=== PATIENT | female | born 1930 | race Two or more races ===

== ENCOUNTER 2018-11-20 14:20 | Outpatient (CLI) | payer MEDICARE, MEDICAID ==
[~2018-11-20] VITALS: Ht 160 cm; Wt 45.4 kg
[2018-11-20 14:35] VITALS: BP 145/92
[2018-11-20 16:20] VITALS: BP 156/85
--- NOTE | 2018-11-24 22:00 | Consultation ---
DATE OF CONSULTATION: 11/20/2018 CONSULTING PHYSICIAN: Zach Henao M.D. CHIEF COMPLAINT: Anemia, weight loss. HISTORY OF PRESENT ILLNESS: This is a very pleasant 88-year-old female, who was referred to us for evaluation of weight loss and anemia. Apparently, the patient was referred here for capsule endoscopy. The patient's history had some bloody looking stools. She is eating, but she is still losing weight. Denies any nausea or vomiting. Denies any dysphagia. Denies any odynophagia. PAST MEDICAL HISTORY: Basically none. PAST SURGICAL HISTORY: Appendectomy and hysterectomy. MEDICATIONS: Please see medication reconciliation list. ALLERGIES: No known drug allergies. FAMILY HISTORY: Noncontributory. SOCIAL HISTORY: The patient denies any tobacco, alcohol, or IV drug abuse. REVIEW OF SYSTEMS: A 10-point review of systems was performed and pertinent positives in HPI. PHYSICAL EXAMINATION: VITAL SIGNS: Temperature 98.3, blood pressure is 156/85, pulse 73, respirations 20. HEENT: Normocephalic and atraumatic. Sclerae anicteric. NECK: Supple. No evidence of obvious lymphadenopathy. CARDIOVASCULAR: Regular rate and rhythm. Plus S1 and S2. No obvious murmur. LUNGS: Clear to auscultation bilaterally. ABDOMEN: Positive bowel sounds. Soft, nontender. No rebound. No guarding. No peritoneal sign. EXTREMITIES: No cyanosis, no clubbing, no edema. ASSESSMENT AND PLAN: This is an 88-year-old female with anemia and weight loss. The son at the bedside keeps asking for capsule endoscopy. I informed the patient and the son that the first thing we need to do is an endoscopy and colonoscopy, and now she is 88 years old and we are not performing screening colonoscopy on an 88-year-old, but at this point, our plan is not a screening. The patient has been having anemia, had seen blood in the stool, and she has been losing weight and I think the best place to do is an endoscopy and colonoscopy. Even though she is 88, but she does not have any cardiopulmonary disease at this time. The family is hesitant. The patient herself wants to have endoscopy and colonoscopy done, but at this time is a little bit hesitant. We gave the instruction for endoscopy and colonoscopy and the prep, and we will let the family and the patient decide if they want to have it done or not. Zach Henao M.D. DR: Alexandre JOB#: [id number] CC:
== END 2018-11-20 16:00 | disposition home or self-care (01) ==
LOC: PAN 14:20
DX: D64.9 Anemia, unspecified (principal); R63.4 Abnormal weight loss; Z68.1 Body mass index [BMI] 19.9 or less, adult; Z90.89 Acquired absence of other organs; Z90.710 Acquired absence of both cervix and uterus
CPT/HCPCS: 99202